=== PATIENT | female | born 1950 | race Hispanic/Latino ===

== ENCOUNTER → 2024-09-24 | Outpatient (CLI) | payer OTHER ==
--- NOTE | 2024-09-25 07:43 | HMCIMG ---
EXAM: CT Cardiac calcium scoring. CLINICAL HISTORY: Screening. TECHNIQUE: Thin collimated axial CT cardiac images were obtained. A CT scan is done according to ALARA (As Low As Reasonably Achievable). CONTRAST: None. COMPARISON: None provided. FINDINGS: Calcium Score: VESSEL Number of lesions Volume mm3 Equi. Mass/mg Calcium score LM 3 74.3 - 80.6 LAD 3 548.1 - 752.5 LCX 1 8.2 - 8.1 RCA 3 104.3 - 152.2 Total 10 735.0 - 993.5 IMPRESSION: The total calcium score is 993.5. 96th percentile. /[place]
== END | disposition home or self-care (01) ==
LOC: RAH 15:04
PROVIDERS: ATTEND Internal Medicine Cardiovascular Disease
DX: Z13.6 Encounter for screening for cardiovascular disorders (principal)
CPT/HCPCS: 75571